=== PATIENT | male | born 1990 | race Caucasian/White ===

== ENCOUNTER 2017-10-23 11:40 | Emergency (ER) | payer SELFPAY ==
[~2017-10-23] VITALS: Ht 185.4 cm; Wt 79.9 kg
[2017-10-23 11:45] VITALS: O2SAT 100; Ht 185.4 cm; Wt 79.9 kg
[2017-10-23] MEDS ORDERED: MULTI-VITAMIN INFUSION INJ 10 ML, THIAMINE HCL INJ 100 MG, FoLIC ACID INJ 1 MG in SODIU... IV ONE (12:30)
--- NOTE | 2017-10-23 12:52 | DIAGNOSTIC IMAGING REPORT ---
CT OF THE HEAD WITHOUT CONTRAST CLINICAL HISTORY: Seizure. COMPARISON STUDY: No previous studies for comparison. CT DOSE: 765.09 mGycm TECHNIQUE: Helical axial images of the head were obtained without IV contrast. Automated exposure control was utilized for the study. A dose lowering technique was utilized adhering to the principles of ALARA. FINDINGS: No acute intracranial hemorrhage, midline shift or mass effect is present. Ventricular system is normal. Basilar cisterns are patent. There are no extra-axial collections. Ledesma-white differentiation is maintained. There are no findings to suggest acute dural sinus thrombosis or acute territorial infarct. There are no significant calvarial abnormalities. There is minimal mucosal thickening of the maxillary sinuses. There is mild mucosal thickening of the left anterior ethmoid sinuses. Mastoid air cells are clear. IMPRESSION: No acute intracranial findings. Electronically signed by: Rl Constantino M.D. 10/23/2017 12:50 PM Dictated Date/Time: 10/23/2017 12:48 PM
[2017-10-23 13:21] LABS: BASO % 0.7 %; BASO ABS # 0.06 K/uL (0-0.2); EOS % 2.3 %; HEMATOCRIT 44.5 % (42-52); HEMOGLOBIN 15.6 g/dL (14.0-18.0); IG# 0.01 K/uL (0.00-0.02); LYMPH % 15.9 %; LYMPH ABS # 1.39 K/uL (1.2-3.4); MEAN CELL VOLUME 87.6 fL (80-100); MEAN CORPUSCULAR HEMOGLOBIN 30.7 pg (25-34); MEAN CORPUSCULAR HGB CONC 35.1 g/dl (32-36); MONO % 8.8 %; MONO ABS # 0.77 K/uL (0.11-0.59); NEUT % 72.2 %; PLATELET COUNT 188 K/uL (130-400); RED CELL DISTRIBUTION WIDTH CV 13.7 % (11.5-14.5); RED CELL DISTRIBUTION WIDTH SD 44.4 fL (36.4-46.3); WHITE BLOOD COUNT 8.73 K/uL (4.8-10.8)
[2017-10-23 13:39] LABS: CALCIUM 8.6 mg/dl (8.5-10.1); CREATININE 1.04 mg/dl (0.60-1.40); POTASSIUM 3.1 mmol/L (3.5-5.1)
[2017-10-23 13:53] LABS: PHOSPHORUS 1.7 mg/dl (2.5-4.9)
[2017-10-23 14:46] VITALS: BP 132/69; PULSE 92; TEMP 36.4; O2SAT 99
--- NOTE | 2017-10-23 16:55 | EMERGENCY ROOM VISIT NOTE ---
ED Visit Note First contact with patient: 11:59 Chief Complaint: Seizure. History of Present Illness: Mr. Berry is a 26-year-old white male who is brought into the ED via ambulance for seizure. EMS reports patient was found lying on the ground outside a convenience store. He appeared postictal on their initial evaluation. They reported the convenience store had a tape of him having an unexplained episode of collapse followed by a 3 minute episode of seizure-like activity. They report during transport patient was stable and had no acute changes in route. Patient reports he is a heavy alcohol drinker; approximately a quarter to half a liter of alcohol every day. His last drink was last night before work at 11 PM. Patient reports remembers getting off work and walking to a local convenience store. He remembers talking to the analytical clerk and going out of the store. He reports from that time to time the ambulance arrived on scene to help him into the ambulance he does not remember any of these events. He denies any previous episodes of seizures or syncope. He reports he has been feeling well over the last few days. Currently patient reports he is not having any symptoms and denies headache, dizziness, lightheadedness, abnormal neurological symptoms, neck pain, back pain , chest pain, shortness of breath, palpitations, abdominal pain, nausea, vomiting, extremity weakness/numbness/tingling. Review of Systems: As noted above in history of present illness. All body systems were reviewed and found to be negative as noted above. Past Medical History: Gastric reflux. Current Medications: Patient denies. Allergies to Medications: Patient denies. Social History: Patient is currently employed; he feels safe in her home environment; he admits to tobacco and alcohol use; he denies drug use. Physical Examination: Vital Signs: Date Time Temp Pulse Resp B/P (MAP) Pulse Ox O2 Delivery O2 Flow Rate FiO2 10/23/17 14:46 36.4 92 17 132/69 99 10/23/17 14:45 92 132/69 99 10/23/17 12:15 98 17 98 10/23/17 12:10 89 13 99 10/23/17 11:46 93 10/23/17 11:45 36.4 91 32 144/70 100 Room Air 10/23/17 11:45 100 Room Air 10/23/17 11:41 144/70 GENERAL: 26-year-old male in no acute distress, nontoxic-appearing, afebrile and hemodynamically stable. NEUROLOGICAL: Awake, alert and oriented to person, place and time. Answering questions appropriately and following commands. Normal gait. Good hand eye coordination. Cranial nerves II through XII grossly intact. Able to spell and count backwards. Normal rapid alternating movements of the hands. SKIN: Warm, dry and pink. Scalp: Over the left parietal area patient has a small superficial abrasion with no active bleeding. HEENT: Atraumatic and normocephalic. Skull: No bony deformity, bony crepitus, swelling or ecchymosis. Soft tissue injury as noted above. No raccoons eyes or richardson signs. No drainage from the ears of the nostril; no hemotympanum. Face: No bony tenderness, swelling or ecchymosis. PERRLA. EOMI without nystagmus. No malocclusion. No intraoral trauma. Airway patent. Speech is normal and clear. No JVD. Trachea midline. BACK: No tenderness over the bony cervical, thoracic and lumbar spine. Full range of motion of the cervical spine. No CVA tenderness. THORAX: Lungs sounds are clear to auscultation and equal bilaterally with symmetrical chest wall. No crepitus, tenderness, subcutaneous air or deformities noted. HEART: Regular rate and rhythm. No gallops, rubs or murmurs are appreciated. ABDOMEN: Flat, soft and nontender. Positive bowel sounds in all quadrants. No guarding, rigidity or organomegaly. EXTREMITIES: Moves all extremities well on command and with purpose. All distal neurovascular statuses are intact and equal bilaterally. ED Course: Patient is assessed as noted above. Patient's medication list were reviewed. Laboratory Testing: Test 10/23/17 13:03 10/23/17 13:06 Range/Units Bedside Glucose 97 70-99 mg/dl White Blood Count 8.73 4.8-10.8 K/uL Red Blood Count 5.08 4.7-6.1 M/uL Hemoglobin 15.6 14.0-18.0 g/dL Hematocrit 44.5 42-52 % Mean Corpuscular Volume 87.6 80-100 fL Mean Corpuscular Hemoglobin 30.7 25-34 pg Mean Corpuscular Hemoglobin Concent 35.1 32-36 g/dl Platelet Count 188 130-400 K/uL Mean Platelet Volume 9.0 7.4-10.4 fL Neutrophils (%) (Auto) 72.2 % Lymphocytes (%) (Auto) 15.9 % Monocytes (%) (Auto) 8.8 % Eosinophils (%) (Auto) 2.3 % Basophils (%) (Auto) 0.7 % Neutrophils # (Auto) 6.30 1.4-6.5 K/uL Lymphocytes # (Auto) 1.39 1.2-3.4 K/uL Monocytes # (Auto) 0.77 0.11-0.59 K/uL Eosinophils # (Auto) 0.20 0-0.5 K/uL Basophils # (Auto) 0.06 0-0.2 K/uL RDW Standard Deviation 44.4 36.4-46.3 fL RDW Coefficient of Variation 13.7 11.5-14.5 % Immature Granulocyte % (Auto) 0.1 % Immature Granulocyte # (Auto) 0.01 0.00-0.02 K/uL Sodium Level 135 136-145 mmol/L Potassium Level 3.1 3.5-5.1 mmol/L Chloride Level 101 98-107 mmol/L Carbon Dioxide Level 29 21-32 mmol/L Anion Gap 5.0 3-11 mmol/L Blood Urea Nitrogen 14 7-18 mg/dl Creatinine 1.04 0.60-1.40 mg/dl Est Creatinine Clear Calc Drug Dose 122.7 ml/min Estimated GFR () 115.1 Estimated GFR (Non- 99.3 BUN/Creatinine Ratio 13.5 10-20 Random Glucose 97 70-99 mg/dl Calcium Level 8.6 8.5-10.1 mg/dl Phosphorus Level 1.7 2.5-4.9 mg/dl Magnesium Level 2.7 1.8-2.4 mg/dl Thyroid Stimulating Hormone (TSH) 22.400 0.300-4.500 uIu/ml Ethyl Alcohol mg/dL < 3.0 0-3 mg/dl Head CT: Was reviewed by myself and read by the radiologist showing no acute intracranial abnormalities or skull fractures. Patient was reassessed multiple times during his stay in the emergency department. Patient's case was consulted with Dr. aHrris, neurologist; he recommended outpatient follow-up for EEG. Patient was educated about today's findings and instructed on his treatment plan ; he verbalized understanding and agreement with this plan. Patient and parents were educated about today's findings and instructed on his treatment plan; he verbalized understanding and agreement with this plan. Clinical Impression: New-onset seizures. Hypothyroidism. Decision-Making: Initially my differential diagnosis I considered new onset seizures, alcohol related seizure, hypoglycemia, and other causes Disposition: Patient discharged home in stable condition accompanied by his parents; prior to departure he was reassessed and subjectively reported that he was pain and symptom-free. Plan: Patient was encouraged to stay well-hydrated with increased clear fluids. Patient was encouraged to avoid alcohol use. Patient was encouraged to follow-up with his family physician for hypothyroidism. Patient was encouraged to follow-up with Dr. Harris, neurologist for his seizure. Patient was educated on signs of head injury. Patient was encouraged return to the ED for any signs of head injury, additional seizure activity or any new/concerning symptoms.
== END 2017-10-23 14:47 | disposition home or self-care (01) ==
LOC: EDBD 11:40 → C.EDB 11:41
DX: R56.9 Unspecified convulsions (principal); E03.9 Hypothyroidism, unspecified; S00.01XA Abrasion of scalp, initial encounter; W19.XXXA Unspecified fall, initial encounter; Z72.0 Tobacco use; Z72.89 Other problems related to lifestyle